=== PATIENT | male | born 1960 | race Caucasian/White ===

== ENCOUNTER 2017-03-23 04:40 | Inpatient (IN) | payer MEDICAID ==
[2017-03-22 14:49] LABS: ASPARTATE AMINO TRANSFERASE 20 U/L (15-37); BLOOD UREA NITROGEN 21 mg/dL (7-18)
[~2017-03-23] VITALS: Ht 182.9 cm; Wt 107.8 kg
[~2017-03-23 04:40] MED LIST: CARV3.1212 PO; CARV3.122 PO; Enoxaparin Sodium SQ; FAMO20TA7 PO; FURO20TA3 PO; INSU100I18 SQ-INSULIN; INSU100I28 SQ-INSULIN; INSU100V13 SC; LISI-167 PO; METF500T27 PO; ROSU10TA PO; SIMV20TA3 PO; SPIR25TA PO; SPIR25TA3 PO; WARF5TAB7 PO; WARF7.5T PO-COUM; WARF7.5T6 PO
[2017-03-23 04:54] VITALS: BP_SYST 104; BP_SYST 113; BP_DIAS 69; BP_DIAS 79
[2017-03-23] MEDS ORDERED: ALBUMIN HUMAN 5% 500 ML IV ONE (05:00)
[2017-03-23] MEDS ORDERED: METOPROLOL TARTRATE 25 MG TABLET PO ONE (05:00)
[2017-03-23] MEDS ORDERED: DO NOT GIVE MC SCH (05:00)
[2017-03-23] MEDS ORDERED: CHLORHEXIDINE MOUTHWASH 15 ML UDC MM SCH (05:00)
[2017-03-23] MEDS: MUPIROCIN OINT 2%, 22GM TP SCH ×2 (05:50→20:04)
[2017-03-23] MEDS ORDERED: INSULIN ASPART 100 UNITS/ML, PEN SQ-INSULIN SCH (06:00)
[2017-03-23] MEDS ORDERED: FENTANYL PF 1000 MCG/20ML ONE (06:29)
[2017-03-23] MEDS ORDERED: MIDAZOLAM 10MG/2 ML ONE (06:29)
[2017-03-23] MEDS ORDERED: POTASSIUM CHLORIDE 80 MEQ, SODIUM BICARBONATE 8.4% 10 MEQ, MAGNESIUM SULFATE 0.5 GM, LI... IV PRN (07:30)
[2017-03-23] MEDS ORDERED: REGULAR INSULIN 62.5 UNITS in SODIUM CHLORIDE 0.9% 249.375 ML IV PRN ×2 (07:30→11:53)
[2017-03-23] MEDS ORDERED: VANCOMYCIN 1,500 MG in SODIUM CHLORIDE 0.9% 250 ML IV PRN (07:30)
[2017-03-23] MEDS ORDERED: CEFUROXIME 1.5 GM in SODIUM CHLORIDE 0.9% 50 ML IVPB PRN (07:30)
[2017-03-23] MEDS ORDERED: EPINEPHRINE 2 MG in SODIUM CHLORIDE 0.9% 248 ML IV SCH (07:30)
[2017-03-23] MEDS ORDERED: DEXMEDETOMIDINE 200 MCG in SODIUM CHLORIDE 0.9% 48 ML IV SCH (07:30)
[2017-03-23] MEDS ORDERED: PHENYLEPHRINE 10 MG in SODIUM CHLORIDE 0.9% 249 ML IV PRN ×2 (07:30→11:53)
[2017-03-23] MEDS ORDERED: MANNITOL PMX 20% 500 ML IVPB PRN (07:30)
[2017-03-23] MEDS ORDERED: PROPOFOL 10 MG/ML, 20ML ONE (08:02)
[2017-03-23] MEDS ORDERED: ROCURONIUM 10 MG/ML ONE (08:02)
[2017-03-23] MEDS ORDERED: CLEVIDIPINE 50 ML IV PRN (11:53)
[2017-03-23] MEDS ORDERED: DOBUTAMINE 250 MG in SODIUM CHLORIDE 0.9% 230 ML IV PRN (11:53)
[2017-03-23] MEDS ORDERED: NITROGLYCERIN/D5W PMX 250 ML IV PRN (11:53)
[2017-03-23] MEDS ORDERED: DEXMEDETOMIDINE 200 MCG in SODIUM CHLORIDE 0.9% 48 ML IV PRN (11:53)
[2017-03-23] MEDS ORDERED: SODIUM CHLORIDE 0.9% 1,000 ML IV ONE (11:53)
[2017-03-23] MEDS ORDERED: ACETAMINOPHEN 325 MG TABLET PO PRN (12:00)
[2017-03-23] MEDS ORDERED: LACTATED RINGERS 500 ML IVBOLUS PRN (12:00)
[2017-03-23] MEDS ORDERED: SODIUM CHLORIDE 0.9% IVPB ONE (12:00)
[2017-03-23] MEDS ORDERED: BISACODYL 10 MG SUPP PR PRN (12:00)
[2017-03-23] MEDS ORDERED: DESMOPRESSIN IVPB ONE (12:00)
[2017-03-23] MEDS ORDERED: DEXTROSE 4 GM TAB.CHEW PO PRN (12:00)
[2017-03-23] MEDS ORDERED: MEPERIDINE/PF 25MG/0.5ML IVPush PRN (12:00)
[2017-03-23] MEDS ORDERED: BISACODYL 5 MG EC TABLET PO PRN (12:00)
[2017-03-23] MEDS ORDERED: GLUCAGON 1 MG IM PRN (12:00)
[2017-03-23] MEDS ORDERED: ACETAMINOPHEN 650 MG SUPP PR PRN (12:00)
[2017-03-23] MEDS ORDERED: PROCHLORPERAZINE 5 MG/ML, 2ML IVPush PRN (12:00)
[2017-03-23] MEDS ORDERED: SODIUM BICARB 8.4%, 50ML SYRINGE IV PRN (12:00)
[2017-03-23] MEDS ORDERED: ONDANSETRON 2MG/ML, 2ML IVPush PRN (12:00)
[2017-03-23] MEDS: KSCALE TO 4.5 IV SCH ×3 (12:00→23:36)
[2017-03-23] MEDS ORDERED: MIDAZOLAM 1 MG/ML, 5ML IVPush PRN (12:00)
[2017-03-23] MEDS ORDERED: EPINEPHRINE 2 MG in SODIUM CHLORIDE 0.9% 248 ML IV PRN (12:00)
[2017-03-23] MEDS ORDERED: DEXTROSE 50%, 50ML SYRINGE IVPush PRN (12:00)
[2017-03-23] MEDS ORDERED: PROTAMINE SULFATE 10 MG/ML, 25ML ONE (12:16)
[2017-03-23] MEDS ORDERED: CALCIUM CHLORIDE 10%, 10ML SYR ONE (12:16)
[2017-03-23] MEDS ORDERED: LIDOCAINE 2% 100MG/5ML SYRINGE ONE (12:17)
[2017-03-23] MEDS ORDERED: HEPARIN 1,000 UNITS/ML, 30ML ONE (12:17)
[2017-03-23] MEDS ORDERED: AMIODARONE 50 MG/ML, 3ML ONE (12:17)
[2017-03-23] MEDS ORDERED: PAPAVERINE 30 MG/ML, 2ML ONE (12:17)
[2017-03-23] MEDS ORDERED: MILRINONE 1 MG/ML, 10ML IV ONE (12:17)
[2017-03-23] MEDS ORDERED: ALBUMIN HUMAN 25% 50 ML ONE (12:17)
[2017-03-23] MEDS ORDERED: AMINOCAPROIC ACID 250 MG/ML, 20ML ONE (12:17)
[2017-03-23] MEDS ORDERED: HEPARIN 1,000 UNITS/ML, 10ML ONE (12:18)
[2017-03-23 12:20] VITALS: BP 128/66
[2017-03-23 12:22] LABS: ABG COLLECTION SITE ARTERIAL LINE; FIO2 60 %
[2017-03-23 12:29] VITALS: BP 143/87
[2017-03-23 12:45] VITALS: BP 119/58
[2017-03-23] MEDS ORDERED: SODIUM CHLORIDE 0.9% 1,000 ML IV PRN (13:00)
[2017-03-23] MEDS ORDERED: MAGNESIUM SULFATE 1 GM in SODIUM CHLORIDE 0.9% 50 ML IVPB SCH (13:00)
[2017-03-23] MEDS: MORPHINE SULFATE 4 MG/ML, 1ML IVPush PRN ×2 (13:18→15:50)
[2017-03-23] MEDS: SODIUM CHLORIDE FLUSH 10ML SYR IVF SCH ×2 (13:26→20:04)
[2017-03-23] MEDS ORDERED: POTASSIUM CHLORIDE PMX 100 ML IV ONE (13:30)
[2017-03-23] MEDS: MAGNESIUM SULFATE 1 GM in SODIUM CHLORIDE 0.9% 100 ML IVPB SCH (14:51)
[2017-03-23] MEDS: OXYcodone IR 5MG TABLET PO PRN ×3 (15:50→21:52)
[2017-03-23] MEDS: VANCOMYCIN 1,500 MG in SODIUM CHLORIDE 0.9% 250 ML IVPB SCH (16:53)
[2017-03-23] MEDS ORDERED: CEFUROXIME 1.5 GM in SODIUM CHLORIDE 0.9% 50 ML IVPB SCH (18:00)
[2017-03-23 18:36] LABS: BLOOD UREA NITROGEN 21 mg/dL (7-18)
[2017-03-23] MEDS: CEFUROXIME 1.5 GM in SODIUM CHLORIDE 0.9% 100 ML IVPB SCH (18:47)
[2017-03-23] MEDS: MUPIROCIN OINT 2%, 22GM NAS SCH (20:04)
[2017-03-23] MEDS: DOCUSATE 100 MG CAPSULE PO SCH (20:04)
[2017-03-23] MEDS ORDERED: ROSUVASTATIN CALCIUM 10 MG HOMEMEDPO SCH (21:00)
[2017-03-23] MEDS ORDERED: FAMOTIDINE 20 MG TABLET PO SCH (21:00)
[2017-03-23] MEDS: ROSUVASTATIN CALCIUM 20 MG HOMEMEDPO SCH (22:21)
[2017-03-24] MEDS: MORPHINE SULFATE 4 MG/ML, 1ML IVPush PRN ×3 (00:26→08:47)
[2017-03-24] MEDS: OXYcodone IR 5MG TABLET PO PRN ×7 (01:01→21:52)
[2017-03-24 04:30] VITALS: BP 95/55
[2017-03-24] MEDS: VANCOMYCIN 1,500 MG in SODIUM CHLORIDE 0.9% 250 ML IVPB SCH (05:03)
[2017-03-24] MEDS: CEFUROXIME 1.5 GM in SODIUM CHLORIDE 0.9% 100 ML IVPB SCH (05:20)
[2017-03-24] MEDS: KSCALE TO 4.5 IV SCH ×3 (06:00→18:00)
[2017-03-24 06:30] LABS: BLOOD UREA NITROGEN 21 mg/dL (7-18)
[2017-03-24 06:31] LABS: ABG COLLECTION SITE NOT DOCUMENTED
[2017-03-24] MEDS: SODIUM CHLORIDE FLUSH 10ML SYR IVF SCH ×4 (09:00→21:00)
[2017-03-24] MEDS: INSULIN ASPART 100 UNITS/ML, PEN SQ-INSULIN PRN ×7 (09:09→23:52)
[2017-03-24] MEDS: PANTOPRAZOLE 40 MG IV IVPush SCH (09:10)
[2017-03-24] MEDS: ASPIRIN 81 MG TABLET EC PO SCH (09:11)
[2017-03-24] MEDS: DOCUSATE 100 MG CAPSULE PO SCH ×2 (09:11→20:13)
[2017-03-24] MEDS: CARVEDILOL 3.125 MG TABLET PO SCH ×2 (09:11→22:12)
[2017-03-24] MEDS: MUPIROCIN OINT 2%, 22GM NAS SCH ×2 (10:09→20:13)
[2017-03-24] MEDS: WARFARIN MODERAT DOSE PROTOCOL XX SCH (12:00)
[2017-03-24] MEDS: MAGNESIUM SULFATE 1 GM in SODIUM CHLORIDE 0.9% 100 ML IVPB SCH (14:47)
[2017-03-24] MEDS: CHLORHEXIDINE MOUTHWASH 15 ML UDC MM SCH (14:48)
[2017-03-24] MEDS ORDERED: WARFARIN 7.5 MG TABLET PO-COUM SCH (18:00)
[2017-03-24] MEDS: HYDROcodone/APAP 10/325 MG TABLET PO PRN ×2 (20:13→23:49)
[2017-03-25] MEDS: KSCALE TO 4.5 IV SCH
[2017-03-25] MEDS: CHLORHEXIDINE MOUTHWASH 15 ML UDC MM SCH ×2 (00:25→10:19)
[2017-03-25] MEDS: OXYcodone IR 5MG TABLET PO PRN ×3 (04:06→18:12)
[2017-03-25] MEDS: INSULIN ASPART 100 UNITS/ML, PEN SQ-INSULIN PRN ×5 (04:16→21:01)
[2017-03-25 04:36] LABS: BLOOD UREA NITROGEN 29 mg/dL (7-18)
[2017-03-25 05:36] VITALS: BP 92/64
[2017-03-25] MEDS ORDERED: MAGNESIUM HYDROXIDE 8%, 30ML UDC PO PRN (07:30)
[2017-03-25] MEDS: SODIUM CHLORIDE FLUSH 10ML SYR IVF SCH ×5 (07:55→20:44)
[2017-03-25] MEDS: METOPROLOL TARTRATE 25 MG TABLET PO SCH ×2 (07:59→16:57)
[2017-03-25] MEDS: PANTOPRAZOLE 40 MG IV IVPush SCH (07:59)
[2017-03-25] MEDS: MUPIROCIN OINT 2%, 22GM NAS SCH ×2 (08:00→20:44)
[2017-03-25] MEDS: DOCUSATE 100 MG CAPSULE PO SCH ×2 (08:01→20:44)
[2017-03-25] MEDS: ASPIRIN 81 MG TABLET EC PO SCH (08:01)
[2017-03-25] MEDS ORDERED: ENOXAPARIN 40 MG/0.4 ML SQ SCH (09:00)
[2017-03-25] MEDS ORDERED: FUROSEMIDE 20 MG/2 ML IV SCH (09:00)
[2017-03-25] MEDS: WARFARIN MODERAT DOSE PROTOCOL XX SCH (12:00)
[2017-03-25 13:26] VITALS: BP 95/66
[2017-03-25] MEDS ORDERED: WARFARIN 7.5 MG TABLET PO-COUM SCH (18:00)
[2017-03-25 18:55] VITALS: BP 104/71
[2017-03-25] MEDS: ROSUVASTATIN CALCIUM 20 MG HOMEMEDPO SCH (20:43)
[2017-03-26] MEDS: OXYcodone IR 5MG TABLET PO PRN ×3 (00:11→16:08)
[2017-03-26] MEDS: CHLORHEXIDINE MOUTHWASH 15 ML UDC MM SCH (00:12)
[2017-03-26 02:10] VITALS: BP 106/75
[2017-03-26 03:56] LABS: BLOOD UREA NITROGEN 42 mg/dL (7-18)
[2017-03-26] MEDS: INSULIN ASPART 100 UNITS/ML, PEN SQ-INSULIN PRN ×5 (04:05→20:07)
[2017-03-26 06:00] VITALS: BP 106/76
[2017-03-26] MEDS: METOPROLOL TARTRATE 25 MG TABLET PO SCH ×2 (06:03→16:08)
[2017-03-26 06:34] VITALS: BP 105/64
[2017-03-26] MEDS: SODIUM CHLORIDE FLUSH 10ML SYR IVF SCH ×6 (07:36→20:06)
[2017-03-26] MEDS: HYDROcodone/APAP 10/325 MG TABLET PO PRN (07:46)
[2017-03-26] MEDS: ASPIRIN 81 MG TABLET EC PO SCH (07:47)
[2017-03-26] MEDS: DOCUSATE 100 MG CAPSULE PO SCH ×2 (07:47→20:06)
[2017-03-26] MEDS: CLOPIDOGREL 75 MG TABLET PO SCH (07:48)
[2017-03-26] MEDS: PANTOPRAZOLE 40 MG IV IVPush SCH (07:48)
[2017-03-26] MEDS: MUPIROCIN OINT 2%, 22GM NAS SCH ×2 (07:49→20:06)
[2017-03-26] MEDS ORDERED: FUROSEMIDE 20 MG/2 ML IV SCH (09:00)
[2017-03-26] MEDS ORDERED: CLOPIDOGREL 75 MG TABLET PO SCH (09:00)
[2017-03-26] MEDS: WARFARIN MODERAT DOSE PROTOCOL XX SCH (10:11)
[2017-03-26] MEDS ORDERED: SODIUM BICARBONATE 4.2%, 5ML ONE (12:29)
[2017-03-26] MEDS ORDERED: LIDOCAINE 1%, 20ML ONE (12:29)
[2017-03-26 14:47] VITALS: BP 131/86
[2017-03-26] MEDS ORDERED: ZOLPIDEM 5MG TABLET PO PRN (16:00)
[2017-03-26] MEDS ORDERED: WARFARIN 5 MG TABLET PO-COUM SCH (18:00)
[2017-03-26 19:00] VITALS: BP 118/78
[2017-03-26] MEDS: ROSUVASTATIN CALCIUM 20 MG HOMEMEDPO SCH (20:08)
[2017-03-27 01:52] VITALS: BP 143/95
[2017-03-27 05:18] LABS: BLOOD UREA NITROGEN 37 mg/dL (7-18)
[2017-03-27 06:04] VITALS: BP 123/78
[2017-03-27] MEDS: METOPROLOL TARTRATE 25 MG TABLET PO SCH ×2 (06:04→18:12)
[2017-03-27] MEDS: PANTOPRAZOLE 40 MG IV IVPush SCH (08:44)
[2017-03-27] MEDS: OXYcodone IR 5MG TABLET PO PRN ×2 (08:45→18:11)
[2017-03-27] MEDS: SODIUM CHLORIDE FLUSH 10ML SYR IVF SCH ×6 (08:45→20:37)
[2017-03-27] MEDS: INSULIN ASPART 100 UNITS/ML, PEN SQ-INSULIN PRN ×4 (08:50→20:36)
[2017-03-27] MEDS: MUPIROCIN OINT 2%, 22GM NAS SCH ×2 (08:51→20:36)
[2017-03-27] MEDS: CLOPIDOGREL 75 MG TABLET PO SCH (08:52)
[2017-03-27] MEDS: ASPIRIN 81 MG TABLET EC PO SCH (08:52)
[2017-03-27] MEDS: DOCUSATE 100 MG CAPSULE PO SCH ×2 (08:52→20:36)
[2017-03-27 09:04] VITALS: BP 129/83
[2017-03-27] MEDS: WARFARIN MODERAT DOSE PROTOCOL XX SCH (12:00)
[2017-03-27] MEDS: HYDROcodone/APAP 10/325 MG TABLET PO PRN ×2 (12:37→20:47)
[2017-03-27] MEDS ORDERED: LISINOPRIL 5 MG TABLET PO SCH (13:00)
[2017-03-27 15:17] VITALS: BP 120/85
[2017-03-27] MEDS: FUROSEMIDE 20 MG/2 ML IV SCH (15:18)
[2017-03-27] MEDS ORDERED: WARFARIN 7.5 MG TABLET PO-COUM SCH (18:00)
[2017-03-27 18:11] VITALS: BP 122/78
[2017-03-27 19:38] VITALS: BP 106/72
[2017-03-27] MEDS: ROSUVASTATIN CALCIUM 20 MG HOMEMEDPO SCH (20:37)
[2017-03-28] MEDS: OXYcodone IR 5MG TABLET PO PRN ×2 (00:12→15:40)
[2017-03-28 00:52] VITALS: BP 116/76
[2017-03-28] MEDS: HYDROcodone/APAP 10/325 MG TABLET PO PRN ×3 (05:20→21:00)
[2017-03-28] MEDS: METOPROLOL TARTRATE 25 MG TABLET PO SCH ×2 (06:15→18:30)
[2017-03-28 06:51] LABS: BLOOD UREA NITROGEN 24 mg/dL (7-18)
[2017-03-28] MEDS: SODIUM CHLORIDE FLUSH 10ML SYR IVF SCH ×5 (09:00→21:00)
[2017-03-28] MEDS: INSULIN ASPART 100 UNITS/ML, PEN SQ-INSULIN PRN ×4 (09:05→21:00)
[2017-03-28] MEDS: FUROSEMIDE 20 MG/2 ML IV SCH (09:10)
[2017-03-28] MEDS: CLOPIDOGREL 75 MG TABLET PO SCH (09:10)
[2017-03-28] MEDS: ASPIRIN 81 MG TABLET EC PO SCH (09:10)
[2017-03-28] MEDS: DOCUSATE 100 MG CAPSULE PO SCH ×2 (09:10→21:00)
[2017-03-28] MEDS: PANTOPROZOLE 40MG TABLET PO SCH (10:45)
[2017-03-28] MEDS: WARFARIN MODERAT DOSE PROTOCOL XX SCH (12:00)
[2017-03-28] MEDS: ROSUVASTATIN CALCIUM 20 MG HOMEMEDPO SCH (21:00)
[2017-03-29] MEDS: OXYcodone IR 5MG TABLET PO PRN (01:00)
[2017-03-29] MEDS: HYDROcodone/APAP 10/325 MG TABLET PO PRN ×4 (04:45→22:38)
[2017-03-29] MEDS: METOPROLOL TARTRATE 25 MG TABLET PO SCH (05:19)
[2017-03-29 08:05] VITALS: BP 114/73
[2017-03-29] MEDS: DOCUSATE 100 MG CAPSULE PO SCH (08:45)
[2017-03-29] MEDS: INSULIN ASPART 100 UNITS/ML, PEN SQ-INSULIN PRN ×2 (08:45→12:30)
[2017-03-29] MEDS: CLOPIDOGREL 75 MG TABLET PO SCH (08:45)
[2017-03-29] MEDS: FUROSEMIDE 20 MG/2 ML IV SCH (08:45)
[2017-03-29] MEDS: SODIUM CHLORIDE FLUSH 10ML SYR IVF SCH (08:45)
[2017-03-29] MEDS: ASPIRIN 81 MG TABLET EC PO SCH (08:45)
[2017-03-29] MEDS: PANTOPROZOLE 40MG TABLET PO SCH (09:10)
[2017-03-29] MEDS: WARFARIN MODERAT DOSE PROTOCOL XX SCH (12:00)
[2017-03-29] MEDS ORDERED: OXYC5CAP4 PO (15:10)
[2017-03-29] MEDS ORDERED: HYDR-3307 PO (15:12)
[2017-03-29] MEDS ORDERED: ASPI-515 PO (15:21)
[2017-03-29] MEDS ORDERED: WARF5TAB PO (15:23)
[2017-03-29] MEDS ORDERED: ROSU20TA PO (15:27)
[2017-03-29] MEDS ORDERED: METO25TA35 PO (15:30)
[2017-03-29] MEDS ORDERED: CLOP75TA22 PO (15:37)
[2017-03-29] MEDS ORDERED: DOCU-30 PO (15:39)
[2017-03-29] MEDS ORDERED: FURO-93 PO (15:40)
[2017-03-29] MEDS ORDERED: LISI5TAB7 PO (15:41)
[2017-03-29] MEDS ORDERED: POTA10TA5 PO (15:45)
[2017-03-29 16:06] VITALS: BP 117/74
== END 2017-03-29 15:45 | disposition home or self-care (01) | DRG 235 ==
LOC: 5SO 04:40 → CCU 07:29 → CSU 09:14 → 5SO 03-25 12:54 → DCLOUNGE 03-29 15:25 → UNDODISIN 03-29 20:35
PROVIDERS: ADMIT Thoracic Surgery (Cardiothoracic Vascular Surgery); ATTEND Thoracic Surgery (Cardiothoracic Vascular Surgery)
PROC: 021209W Bypass Coronary Artery, Three Arteries from Aorta with Autologous Venous Tissue, Open Approach (ICD-10-PCS; 2017-03-23)
PROC: 06BP4ZZ Excision of Right Saphenous Vein, Percutaneous Endoscopic Approach (ICD-10-PCS; 2017-03-23)
PROC: 30233L1 Transfusion of Nonautologous Fresh Plasma into Peripheral Vein, Percutaneous Approach (ICD-10-PCS; 2017-03-23)
PROC: 5A02210 Assistance with Cardiac Output using Balloon Pump, Continuous (ICD-10-PCS; 2017-03-23)
PROC: 5A1223Z Performance of Cardiac Pacing, Continuous (ICD-10-PCS; 2017-03-23)
PROC: 5A1221Z Performance of Cardiac Output, Continuous (ICD-10-PCS; 2017-03-23)
PROC: B24BZZ4 Ultrasonography of Heart with Aorta, Transesophageal (ICD-10-PCS; 2017-03-23)
PROC: 30233K1 Transfusion of Nonautologous Frozen Plasma into Peripheral Vein, Percutaneous Approach (ICD-10-PCS; 2017-03-23)
PROC: 02100Z9 Bypass Coronary Artery, One Artery from Left Internal Mammary, Open Approach (ICD-10-PCS; principal; 2017-03-23 08:00)
PROC: 0W9B3ZZ Drainage of Left Pleural Cavity, Percutaneous Approach (ICD-10-PCS; 2017-03-26)
DX: I25.119 Atherosclerotic heart disease of native coronary artery with unspecified angina pectoris (principal); I50.43 Acute on chronic combined systolic (congestive) and diastolic (congestive) heart failure; I13.0 Hypertensive heart and chronic kidney disease with heart failure and stage 1 through stage 4 chronic kidney disease, or unspecified chronic kidney disease; D68.69 Other thrombophilia; N17.9 Acute kidney failure, unspecified; J90 Pleural effusion, not elsewhere classified; N18.9 Chronic kidney disease, unspecified; E78.5 Hyperlipidemia, unspecified; E78.00 Pure hypercholesterolemia, unspecified; E11.22 Type 2 diabetes mellitus with diabetic chronic kidney disease; Z79.01 Long term (current) use of anticoagulants; Z86.73 Personal history of transient ischemic attack (TIA), and cerebral infarction without residual deficits; Z82.49 Family history of ischemic heart disease and other diseases of the circulatory system; Z80.3 Family history of malignant neoplasm of breast; I42.9 Cardiomyopathy, unspecified; F17.210 Nicotine dependence, cigarettes, uncomplicated; F17.220 Nicotine dependence, chewing tobacco, uncomplicated; Z95.1 Presence of aortocoronary bypass graft
CPT/HCPCS: 36415; 36600; 71010; 71020; 80048; 80053; 81003; 82040; 82330; 82800; 82803; 82810; 82947; 82962; 83036; 83735; 84132; 84295; 85014; 85018; 85025; 85049; 85347; 85610; 85730; 86850; 86900; 86923; 87081; 87147; 93005; 93312; 93321; 93325; 93970; 94002; 94150; J0697; J1644; J1650; J1815; J2250; J2260; J2704; J2720; J3010; J3370; J3475; J3480; J3490; P9045; P9047; C9113; J0171; J0282; J1940; J2370; J2440; J7030; J7050; P9017